=== PATIENT | female | born 1965 | race Caucasian/White ===

== ENCOUNTER → 2025-03-14 08:34 | Outpatient (REF) | payer OTHER, SELFPAY | LOC: HWRAD 08:34 | PROVIDERS: ATTENDING PHYSICIAN Internal Medicine | DX: K76.0 Fatty (change of) liver, not elsewhere classified (principal); K82.4 Cholesterolosis of gallbladder; Z78.0 Asymptomatic menopausal state | CPT/HCPCS: 76700; 77080 ==